=== PATIENT | male | born 1995 | race Caucasian/White ===

== ENCOUNTER → 2020-05-02 | Outpatient (CLI) | payer OTHER ==
[2018-02-18 00:25] VITALS: BP 145/78
[~2020-05-02] MED LIST: CYCLOBENZAPRINE10 M1 PO; CYCLOBENZAPRINE10 MG PO; GOOD NEIGHBOR200 M1 PO; NAPROSYN500 M1 PO; NO HOME MEDICATIONS; NORCO 325 MG-51 TAB PO; PREDNISONE20 MG PO
[2020-05-02 15:11] LABS: BASO # 0.1 (0.02-0.10); EOS # 0.3 (0.04-0.40); EOS % 2.3 % (0.0-4.0); HEMATOCRIT 50.8 % (42.0-52.0); HEMOGLOBIN 16.6 g/dL (13.5-18.0); LYMPH# 2.1 (1.50-4.00); MEAN CELL VOLUME 89 fl (78-100); MEAN CORPUSCULAR HEMOGLOBIN 29 pg (27-31); MEAN CORPUSCULAR HGB CONC 33 g/dL (33-37); MONO # 1.2 (0.20-0.80); NEU # 8.5 (1.40-6.50); PLATELET COUNT 275 K/mm3 (130-400); RED BLOOD COUNT 5.71 M/mm3 (4.20-5.60); RED CELL DISTRIBUTION WIDTH 14.3 % (11.5-14.5); WHITE BLOOD COUNT 12.2 K/mm3 (4.8-10.8)
[2020-05-02 15:21] LABS: ALBUMIN 4.4 g/dL (3.5-5.0); POTASSIUM 4.8 mmol/L (3.5-5.1); SODIUM 140 mmol/L (136-145)
[2020-05-02 15:22] LABS: CALCIUM 9.7 mg/dL (8.3-10.5)
[2020-05-02 15:23] LABS: GLUCOSE 99 mg/dL (75-110)
[2020-05-02 15:24] LABS: TOTAL PROTEIN 7.9 g/dL (6.4-8.3)
[2020-05-02 15:25] LABS: CARBON DIOXIDE 23 mmol/L (22-29); TOTAL BILIRUBIN 0.7 mg/dL (0.2-1.2)
[2020-05-02 15:29] LABS: AST-SGOT 40 U/L (5-34)
[2020-05-02 15:30] LABS: ALT/SGPT 86 U/L (0-55)
[2020-05-02 15:59] LABS: TROPONIN-I < 0.03 ng/mL (<0.030)
== END ==
LOC: LAB 14:52
PROVIDERS: Nurse Practitioner Family
DX: R07.9 Chest pain, unspecified (principal)